=== PATIENT | male | born 1970 | race American Indian/Alaskan Native ===

== ENCOUNTER 2021-07-05 21:00 | Emergency (ER) | payer SELFPAY ==
[2021-07-05] MEDS ORDERED: ACETAMINOPHEN 500 MG TAB PO ONE (22:49)
[2021-07-05] MEDS ORDERED: amLODIPine 5 MG TAB PO ONE (22:57)
--- NOTE | 2021-07-05 23:01 | Emergency Department Report ---
ED Chest Pain HPI - General Chief Complaint: Chest Pain Stated Complaint: CHEST PAIN HBP Time Seen by Provider: 07/05/21 22:54 Source: patient Mode of arrival: Ambulatory Limitations: No Limitations - History of Present Illness Initial Comments: Patient 50-year-old male with a history of chronic hypertension. Hypertension usually controlled with amlodipine, patient states 4/10 substernal chest pain there is no radiation. Pain is exacerbated by activity and movement. Same pain is relieved by nothing tried. Patient states he visited his [facility] ED today. BP was 220/125. Patient was worked up for AAA rule out an TN rule out. States he received chest x-ray CTA, and IV blood pressure medicine. Patient states he got home and pain started to return. So he presents to ED at this time. Patient denies cough, there is no fever, no chills, no dizziness or lightheadedness. No nausea or vomiting. MD Complaint: chest pain - Related Data Previous Rx's Medication Instructions Recorded Last Taken Type Ibuprofen [Motrin 800 MG tab] 800 mg PO Q8HR PRN #30 tablet 07/06/21 Unknown Rx Allergies Allergy/AdvReac Type Severity Reaction Status Date / Time No Known Allergies Allergy Verified 07/05/21 21:13 Heart Score - HEART Score History: Slightly suspicious EKG: Normal Age: 45-65 Risk factors: 1-2 risk factors Troponin: < normal limit HEART Score: 2 - EKG Read Time Time EKG Completed: 20:50 EKG Read Time: 20:53 ED Review of Systems ROS: Stated complaint: CHEST PAIN HBP Other details as noted in HPI Constitutional: denies: chills, fever Eyes: denies: eye pain, eye discharge, vision change ENT: denies: ear pain, throat pain Respiratory: no symptoms reported Cardiovascular: chest pain. denies: palpitations, dyspnea on exertion, paroxysmal nocturnal dyspnea Endocrine: no symptoms reported Gastrointestinal: denies: abdominal pain, nausea, vomiting, diarrhea Genitourinary: denies: urgency, dysuria Musculoskeletal: denies: back pain, joint swelling, arthralgia Skin: denies: rash, lesions Neurological: as per HPI. denies: headache, weakness, numbness, vertigo Psychiatric: anxiety. denies: depression Hematological/Lymphatic: as per HPI ED Past Medical Hx - Past Medical History Hx Hypertension: Yes - Surgical History Past Surgical History?: No - Medications Home Medications: Home Medications Medication Instructions Recorded Confirmed Last Taken Type Ibuprofen [Motrin 800 MG tab] 800 mg PO Q8HR PRN #30 tablet 07/06/21 Unknown Rx ED Physical Exam - General Limitations: No Limitations General appearance: alert, in no apparent distress - Head Head exam: Present: atraumatic, normocephalic - Eye Eye exam: Present: normal appearance, PERRL, EOMI Pupils: Present: normal accommodation - ENT ENT exam: Present: mucous membranes moist - Neck Neck exam: Present: normal inspection, full ROM. Absent: tenderness, lymphadenopathy - Respiratory Respiratory exam: Present: normal lung sounds bilaterally. Absent: respiratory distress, wheezes, rales, rhonchi, stridor, chest wall tenderness - Cardiovascular Cardiovascular Exam: Present: regular rate, normal rhythm, normal heart sounds. Absent: systolic murmur, diastolic murmur, rubs, gallop - GI/Abdominal GI/Abdominal exam: Present: soft, normal bowel sounds. Absent: distended, tenderness, guarding, rebound, rigid, bruit, hernia - Rectal Rectal exam: Present: deferred - Extremities Exam Extremities exam: Present: normal inspection - Back Exam Back exam: Present: normal inspection, full ROM. Absent: CVA tenderness (R), CVA tenderness (L) - Neurological Exam Neurological exam: Present: alert, oriented X3, CN II-XII intact - Expanded Neurological Exam Expanded Patient oriented to: Present: person, place, time Best Eye Response (Curry): (4) open spontaneously Best Motor Response (Curry): (6) obeys commands Best Verbal Response (Curry): (5) oriented Curry Total: 15 - Psychiatric Psychiatric exam: Present: normal affect - Skin Skin exam: Present: warm, dry, intact, normal color. Absent: rash ED Course Vital Signs 07/05/21 07/05/21 21:05 23:07 Temperature 98.5 F Pulse Rate 91 H Respiratory 17 14 Rate Blood Pressure 180/98 O2 Sat by Pulse 97 Oximetry JEREMY score - Jeremy Score Age > 65: (0) No Aspirin use within the Past 7 Days: (0) No 3 or more CAD Risk Factors: (0) No 2 or more Angina events in past 24 hrs: (0) No Known CAD with more than 50% Stenosis: (0) No Elevated Cardiac Markers: (0) No ST Deviation Greater than 0.5mm: (0) No JEREMY Score: 0 ED Medical Decision Making - Lab Data Result diagrams: 07/05/21 23:03 07/05/21 23:03 Laboratory Results - last 72 hr 07/05/21 07/05/21 23:03 23:03 WBC 7.8 RBC 4.57 Hgb 13.9 Hct 40.9 MCV 90 MCH 30 MCHC 34 RDW 12.8 L Plt Count 263 Lymph % (Auto) 26.1 [place] % (Auto) 6.9 Eos % (Auto) 1.0 Baso % (Auto) 0.5 Lymph # (Auto) 2.0 [place] # (Auto) 0.5 Eos # (Auto) 0.1 Baso # (Auto) 0.0 Seg Neutrophils % 65.5 Seg Neutrophils # 5.1 Sodium 142 Potassium 4.0 Chloride 103.4 Carbon Dioxide 27 Anion Gap 16 BUN 10 Creatinine 0.9 Estimated GFR > 60 BUN/Creatinine Ratio 11 Glucose 83 Calcium 9.4 Total Bilirubin 0.70 AST 17 ALT 12 Alkaline Phosphatase 63 Troponin T < 0.010 Total Protein 8.2 Albumin 5.2 H Albumin/Globulin Ratio 1.7 - EKG Data EKG shows normal: sinus rhythm, axis, intervals, QRS complexes, ST-T waves Rate: normal - EKG Data Interpretation: normal EKG (EKG normal sinus rhythm no ST elevated TN. EKG interpreted by ED attending.) - Radiology Data Radiology results: report reviewed, image reviewed CHEST 2 VIEWS INDICATION / CLINICAL INFORMATION: chest pain. COMPARISON: None available. FINDINGS: SUPPORT DEVICES: None. HEART / MEDIASTINUM: No significant abnormality. LUNGS / PLEURA: No significant pulmonary or pleural abnormality. No pneumothorax. ADDITIONAL FINDINGS: No significant additional findings. IMPRESSION: 1. No acute findings. Signer Name: Ken Beltran MD Signed: 07/05/2021 11:08 PM Workstation Name: [id number] Transcribed By: WALKER Dictated By: ONEYDA BELTRAN MD Electronically Authenticated By: ONEYDA BELTRAN MD Signed Date/Time: 07/05/212307 DD/ 07 TD/TT: - Medical Decision Making Labs normal, troponin negative chest x-ray normal no infiltrate no opacities EKG normal sinus rhythm no ST elevated STI. There is no chest pain at this time. Plan continue to take medication as prescribed, follow-up with your doctor tomorrow. Critical care attestation.: If time is entered above; I have spent that time in minutes in the direct care of this critically ill patient, excluding procedure time. ED Disposition Clinical Impression: HTN (hypertension) with goal to be determined Chest pain Qualifiers: Chest pain type: unspecified Qualified Code(s): R07.9 - Chest pain, unspecified Disposition: HOME / SELF CARE / HOMELESS Is pt being admited?: No Does the pt Need Aspirin: No Condition: Stable Instructions: Nonspecific Chest Pain, Adult, Hypertension (ED) Additional Instructions: Take medications as prescribed, including your Norvasc as scheduled daily. Follow-up with your doctor in 2 to 3 days. Return to the emergency department if symptoms worsen. Prescriptions: Ibuprofen [Motrin 800 MG tab] 800 mg PO Q8HR PRN #30 tablet PRN Reason: Pain Referrals: JAVIER MARTELL MD [Referring] - 3-5 Days Forms: Work/School Release Form(ED) Time of Disposition: 00:58
--- NOTE | 2021-07-05 23:13 | XRay Report ---
CHEST 2 VIEWS INDICATION / CLINICAL INFORMATION: chest pain. COMPARISON: None available. FINDINGS: SUPPORT DEVICES: None. HEART / MEDIASTINUM: No significant abnormality. LUNGS / PLEURA: No significant pulmonary or pleural abnormality. No pneumothorax. ADDITIONAL FINDINGS: No significant additional findings. IMPRESSION: 1. No acute findings. Signer Name: Ken Suero MD Signed: 07/05/2021 11:08 PM Workstation Name: [id number]
[2021-07-05 23:20] LABS: Basophils % (Auto) 0.5 % (0.0-1.8); Eosinophils # (Auto) 0.1 K/mm3 (0.0-0.4); Hematocrit 40.9 % (35.5-45.6); Hemoglobin 13.9 gm/dl (11.8-15.2); Lymphocytes % (Auto) 26.1 % (13.4-35.0); Mean Corpuscular HGB Conc 34 % (32-34); Mean Corpuscular Volume 90 fl (84-94); Monocytes # (Auto) 0.5 K/mm3 (0.0-0.8); Monocytes % (Auto) 6.9 % (0.0-7.3); Platelet Count 263 K/mm3 (140-440); Red Blood Count 4.57 M/mm3 (3.65-5.03); Red Cell Distribution Width 12.8 % (13.2-15.2)
[2021-07-05 23:44] LABS: Alanine Aminotransferase 12 units/L (7-56); Albumin 5.2 g/dL (3.9-5); BUN/Creatinine Ratio 11; Blood Urea Nitrogen 10 mg/dL (9-20); Calcium 9.4 mg/dL (8.4-10.2); Hemolysis Index 12
[2021-07-06 02:10] VITALS: BP 183/98
--- NOTE | 2021-07-07 11:41 | Electrocardiograph Report ---
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
== END 2021-07-06 02:12 | disposition home or self-care (01) ==
LOC: ED 21:00
DX: I10 Essential (primary) hypertension (principal); Z79.899 Other long term (current) drug therapy
CPT/HCPCS: 36415; 71046; 80053; 84484; 85025; 93005; 93010; 99284